=== PATIENT | male | born 1985 | race Hispanic/Latino ===

== ENCOUNTER 2020-11-05 19:57 | Emergency (ER) | payer SELFPAY ==
[2020-11-05 20:59] LABS: BASOPHILS % (AUTO) 0.8 % (0.0-5.0); LYMPHOCYTES % (AUTO) 28.5 % (21.0-51.0); MEAN CORPUSCULAR HGB CONC 35.8 g/dL (32.0-36.0); MEAN CORPUSCULAR VOLUME 89.4 fL (79-99); MONOCYTES % (AUTO) 9.1 % (3.0-13.0); NEUTROPHILS % (AUTO) 59.2 % (40.0-77.0); PLATELET COUNT (AUTO) 224 K/uL (130-400); RED BLOOD CELL COUNT(AUTO) 4.25 MIL/uL (4.50-6.20); RED CELL DISTRIBUTION WIDTH 11.5 % (11.0-15.5); WHITE BLOOD COUNT (AUTO) 7.9 K/uL (4.8-10.8)
[2020-11-05 21:11] LABS: PROTHROMBIN TIME 10.9 SEC (9.6-11.6)
[2020-11-05 21:20] LABS: ALBUMIN 3.7 g/dL (3.5-5.0); BILIRUBIN,TOTAL 0.4 mg/dL (0.2-1.0); POTASSIUM 3.8 mmol/L (3.5-5.1); TOTAL PROTEIN, SERUM 7.7 g/dL (6.0-8.3)
[2020-11-05 21:25] LABS: CREATININE 0.8 mg/dL (0.5-1.5)
[2020-11-05 21:37] LABS: APPEARANCE,URINE Clear (CLEAR); BILIRUBIN,URINE Negative (NEGATIVE); COLOR,URINE Yellow (YELLOW); GLUCOSE, URINE (UA) >=1000 mg/dL (NEGATIVE); KETONES,URINE Negative (NEGATIVE); LEUKOCYTE ESTERASE ,URINE Negative (NEGATIVE); NITRATE,URINE Negative (NEGATIVE); OCCULT BLOOD,URINE Negative (NEGATIVE); PH,URINE 5.5 (5.0-8.0); PROTEIN,URINE Negative (NEGATIVE); UROBILINOGEN,URINE 0.2 mg/dL (0.2-1.0)
[2020-11-05 21:53] LABS: RBC,URINE None Seen /HPF (0-1)
[2020-11-05 21:54] LABS: BACTERIA,URINE None Seen /HPF (None Seen); SQUAMOUS EPITHELIAL CELL,UR None Seen /HPF (0-2); WBC,URINE 0-1 /HPF (0-1)
[2020-11-05 21:58] LABS: ABG OXYGEN SATURATION 92.9 % (95.0-99.0); BASE EXCESS,VENOUS BLOOD GAS 0.8 (-2.0-3.0); HCO3,VENOUS BLOOD GAS 25.4 (21.0-28.0); PCO2,VENOUS BLOOD GAS 40 (35-48); PH,VENOUS BLOOD GAS 7.417 (7.350-7.450)
== END 2020-11-06 00:09 | disposition home or self-care (01) ==
LOC: EDH 19:57
DX: E86.0 Dehydration (principal); E11.65 Type 2 diabetes mellitus with hyperglycemia
CPT/HCPCS: 36415; 36600; 71045; 80053; 81001; 82010; 82803; 82948; 84443; 84484; 85025; 85610; 85730; 93005; 96360; 96361

== ENCOUNTER 2022-07-26 20:53 | Emergency (ER) | payer SELFPAY | END 2022-07-26 21:23 | disposition left against medical advice (07) | LOC: EDH 20:53 | DX: R53.1 Weakness (principal); Z53.21 Procedure and treatment not carried out due to patient leaving prior to being seen by health care provider ==